=== PATIENT | male | born 1960 | race Caucasian/White ===

== ENCOUNTER 2017-06-27 12:22 | Emergency (ER) | payer BC ==
[2017-06-27 12:32] VITALS: BP 120/80; BMI 27.6
[2017-06-27] MEDS ORDERED: SODIUM CHLORIDE 1,000 ML IV STA (12:43)
[2017-06-27] MEDS ORDERED: ACETAMINOPHEN 325 MG TABLET (FP) PO ONE (12:43)
--- NOTE | 2017-06-27 12:47 | PDOC ---
History of Present Illness - General Chief Complaint: Weakness Stated Complaint: RESPIRATORY Time Seen by Provider: 06/27/17 12:38 History Source: Patient - History of Present Illness Severity: severe Associated Symptoms: reports: cough, fever/chills, malaise, shortness of breath , weakness. denies: chest pain, headaches Past History - Past Medical History Allergies/Adverse Reactions: Allergies Allergy/AdvReac Type Severity Reaction Status Date / Time No Known Allergies Allergy Verified 06/27/17 12:28 Home Medications: Ambulatory Orders Lisinopril [Prinivil] 10 mg PO DAILY 05/26/13 Oseltamivir Phosphate [Tamiflu] 75 mg PO BID #9 capsule 06/27/17 CVA: Yes COPD: No HTN: Yes - Immunization History Immunization Up to Date: Yes - Suicide/Smoking/Psychosocial Hx Smoking History: Current every day smoker Have you smoked in the past 12 months: No Number of Cigarettes Smoked Daily: 5 Information on smoking cessation initiated: No 'Breaking Loose' booklet given: 06/27/17 Hx Alcohol Use: No Drug/Substance Use Hx: No Substance Use Type: None, Marijuana Review of Systems - Review of Systems Constitutional: Yes: Chills, Fever HEENTM: No: Ear Pain, Throat Pain Respiratory: Yes: Cough, Shortness of Breath. No: Wheezing Cardiac (ROS): No: Chest Pain ABD/GI: No: Constipated, Diarrhea, Nausea, Vomiting, Abdominal cramping : No: Dysuria Neurological: No: Headache, Dizziness *Physical Exam - Vital Signs Last Vital Signs Temp Pulse Resp BP Pulse Ox 99.4 F 140 H 18 120/80 98 06/27/17 12:25 06/27/17 12:25 06/27/17 12:25 06/27/17 12:25 06/27/17 12:25 - Physical Exam Comments: 06/27/17 12:47 appears uncomfortable General Appearance: Yes: Appropriately Dressed HEENT: positive: Normal ENT Inspection, Normal Voice, Pharynx Normal. negative : Scleral Icterus (R), Scleral Icterus (L) Neck: positive: Supple Respiratory/Chest: positive: Lungs Clear, Normal Breath Sounds. negative: Respiratory Distress, Wheezing Cardiovascular: positive: S1, S2, Tachycardia Gastrointestinal/Abdominal: positive: Soft. negative: Tender Musculoskeletal: negative: CVA Tenderness Integumentary: positive: Dry, Warm Neurologic: positive: Fully Oriented, Alert, Normal Mood/Affect ED Treatment Course - LABORATORY CBC & Chemistry Diagram: 06/27/17 13:20 06/27/17 13:20 - RADIOLOGY Radiology Studies Ordered: Category Date Time Status CHEST PA & LAT [RAD] Stat Radiology 06/27/17 12:43 Ordered Medical Decision Making - Medical Decision Making 06/27/17 12:44 56-year-old male, former smoker, here with sudden onset chills 2 nights ago with body aches, malaise, productive cough and shortness of breath. Denies any chest pain, vomiting, diarrhea. No recent travel or sick contacts. Denies history of pneumonia in the past. See exam R/o PNA vs Influenza Tachy to 140 w/ low grade fever and uncomfortable appearing -IVF -tylenol -labs -CXR -EKG -dispo pending 06/27/17 15:28 Flu A positive. Chest x-ray and rest of labs negative. Patient improved with fluids and tylenol. 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 Has since been given first dose of tamiflu. Will discharge with supportive treatment. Strict return precautions given *DC/Admit/Observation/Transfer Diagnosis at time of Disposition: Influenza A - Discharge Dispostion Disposition: HOME Condition at time of disposition: Improved - Prescriptions Prescriptions: Oseltamivir Phosphate [Tamiflu] 75 mg PO BID #9 capsule - Referrals Referrals: Grace Lee [Primary Care Provider] - - Patient Instructions Printed Discharge Instructions: Influenza Additional Instructions: You have the flu which is very contagious and you should stay home until you're feeling better. Drink plenty of fluids, take tylenol or Motrin for pain and/or fever and take Tamiflu as discussed. If symptoms worsen, return to ER immediately. Otherwise follow-up with your doctor as needed - Post Discharge Activity Forms/Work/School Notes: Back to Work
[2017-06-27] MEDS ORDERED: ACETAMINOPHEN 325 MG TABLET (FP) ONE (13:12)
[2017-06-27 13:37] LABS: BASO % 0.5 % (0-2.0); EOS % 1.6 % (0-4.5); HEMATOCRIT 42.4 % (35.4-49); HEMOGLOBIN 14.1 GM/dL (11.7-16.9); LYMPH % 13.6 % (8-40); MCH 29.2 pg (25.7-33.7); MCHC 33.4 g/dl (32.0-35.9); MEAN CELL VOLUME 87.6 fl (80-96); MEAN PLT VOLUME 7.8 fl (7.5-11.1); MONO % 7.1 % (3.8-10.2); NEUT % 77.2 % (42.8-82.8); PLATELET COUNT 201 K/MM3 (134-434); RBC 4.84 M/mm3 (4.00-5.60); RDW 14.2 % (11.9-15.9); WHITE BLOOD COUNT 7.4 K/mm3 (4.0-10.0)
[2017-06-27] MEDS ORDERED: OSELTAMIVIR PHOSPHATE 75 MG CAPSULE PO ONE (14:34)
[2017-06-27] MEDS ORDERED: OSELTAMIVIR PHOSPHATE 75 MG CAPSULE ONE (14:42)
[2017-06-27 14:50] LABS: ALBUMIN 4.1 g/dl (3.4-5.0); ANION GAP 11 (8-16); BLOOD UREA NITROGEN 10 mg/dL (7-18); CALCIUM 9.6 mg/dL (8.5-10.1); CHLORIDE 102 mmol/L (98-107); CO2 26 mmol/L (21-32); GLUCOSE,RANDOM 112 mg/dL (74-106); POTASSIUM 4.1 mmol/L (3.5-5.1); SGOT/AST 25 U/L (15-37); SGPT/ALT 37 U/L (12-78); SODIUM 139 mmol/L (136-145)
[2017-06-27 14:52] LABS: ALK PHOS 79 U/L (45-117); BILIRUBIN,TOTAL 0.5 mg/dL (0.2-1.0); TOT PROT 7.5 g/dl (6.4-8.2)
[2017-06-27] MEDS ORDERED: IBUPROFEN 400 MG TABLET (FP) PO ONE ×2 (15:28→15:30)
[2017-06-27 15:29] VITALS: PULSE 99; TEMP 100
--- NOTE | 2017-06-28 12:38 | EKG ---
Test Reason : Blood Pressure : / mmHG Vent. Rate : 107 BPM Atrial Rate : 107 BPM P-R Int : 172 ms QRS Dur : 072 ms QT Int : 302 ms P-R-T Axes : 062 -48 052 degrees QTc Int : 403 ms SINUS TACHYCARDIA LEFT AXIS DEVIATION ABNORMAL ECG WHEN COMPARED WITH ECG OF 26-JUL-2015 13:03, NO SIGNIFICANT CHANGE WAS FOUND Confirmed by GABRIELLE MANSFIELD MD ([id number]) on 06/28/2017 12:38:39 PM Referred By: Confirmed By:GABRIELLE MANSFIELD MD
== END 2017-06-27 15:44 | disposition home or self-care (01) ==
LOC: JERFT 12:22
PROC: 3E0337Z Introduction of Electrolytic and Water Balance Substance into Peripheral Vein, Percutaneous Approach (ICD-10-PCS; principal; 2017-06-27)
DX: J09.X2 Influenza due to identified novel influenza A virus with other respiratory manifestations (principal); I10 Essential (primary) hypertension; Z86.73 Personal history of transient ischemic attack (TIA), and cerebral infarction without residual deficits; F17.210 Nicotine dependence, cigarettes, uncomplicated
CPT/HCPCS: 36415; 71046-TC-FY; 80053; 85025; 87040; 87804; 93005; 93010; 99282-25; J7030